=== PATIENT | male | born 1995 | race Caucasian/White ===

== ENCOUNTER 2024-11-12 21:55 | Emergency (ER) | payer SELFPAY ==
[~2024-11-12] VITALS: Ht 193 cm; Wt 73.0 kg
[2024-11-12 23:51] LABS: *BILIRUBIN,URIN NEGATIVE (NEGATIVE); *BLOOD, URINE NEGATIVE (NEGATIVE); *CLARITY,URINE CLEAR (CLEAR); *COLOR,URINE YELLOW (YELLOW); *KETONES,URINE NEGATIVE (NEGATIVE); *PROTEIN,URINE NEGATIVE (NEGATIVE); *UROBILINOGEN,URINE 0.2 E.U./dl (NORMAL); LEUKOCYTE ESTERASE ,URINE NEGATIVE (NEGATIVE); NITRITE, URINE NEGATIVE (NEGATIVE); UGLUCOSE NEGATIVE (NEGATIVE)
[2024-11-12 23:56] LABS: BASOPHILS % (AUTO) 0.5 % (0.0-2.0); EOSINOPHILS # (AUTO) 0.1 K/uL (0.0-0.7); HEMATOCRIT 41.8 % (36.7-47.1); HEMOGLOBIN 13.9 g/dL (12.5-16.3); LYMPHOCYTES # (AUTO) 1.6 K/uL (0.8-4.8); LYMPHOCYTES % (AUTO) 28.5 % (20.5-51.5); MEAN CORPUSCULAR HEMOGLOBIN 27.2 uug (23.8-33.4); MEAN CORPUSCULAR HGB CONC 33 g/dL (32.5-36.3); MEAN CORPUSCULAR VOLUME 81.9 fL (73.0-96.2); MONOCYTES # (AUTO) 0.4 K/uL (0.1-1.30); NEUTROPHILS # (AUTO) 3.4 K/uL (1.8-8.9); PLATELET COUNT (AUTO) 254 K/uL (152-348); RED BLOOD CELL COUNT(AUTO) 5.11 MIL/uL (4.06-5.63); RED CELL DISTRIBUTION WIDTH 13.2 % (12.1-16.2); WHITE BLOOD COUNT (AUTO) 5.6 K/uL (3.6-10.2)
[2024-11-12 23:59] LABS: *AMPHETAMINE, URINE NEGATIVE (NEGATIVE); *BARBITURATE, URINE NEGATIVE (NEGATIVE); *BENZODIAZEPINE, URINE NEGATIVE (NEGATIVE); *CANNABINOID, URINE NEGATIVE (NEGATIVE); *COCCAINE, URINE NEGATIVE (NEGATIVE); *OPIATE, URINE NEGATIVE (NEGATIVE); *PHENCYCLIDINE SCREEN,URINE NEGATIVE (NEGATIVE); FENTANYL, URINE NEGATIVE (NEGATIVE)
[2024-11-13 00:11] LABS: DIFFERENTIAL COMMENT 1
[2024-11-13] MEDS ORDERED: LISI-656 PO (00:23)
[2024-11-13] MEDS ORDERED: OMEP20TA20 PO (00:23)
[2024-11-13] MEDS ORDERED: LEVO25TA2 PO (00:23)
[2024-11-13] MEDS ORDERED: RISP1TAB7 PO (00:23)
[2024-11-13] MEDS ORDERED: TEMA15CA5 PO (00:23)
[2024-11-13] MEDS ORDERED: RISP2TAB5 PO (00:23)
[2024-11-13] MEDS ORDERED: MULT-213 PO (00:23)
[2024-11-13] MEDS ORDERED: POTA10CA43 PO (00:23)
[2024-11-13] MEDS ORDERED: DIVA500T2 PO (00:23)
[2024-11-13] MEDS ORDERED: CHOL10005 PO (00:23)
[2024-11-13] MEDS ORDERED: FURO20TA4 PO (00:23)
[2024-11-13] MEDS ORDERED: ATOR20TA PO (00:23)
[2024-11-13] MEDS ORDERED: ACET-2154 PO (00:23)
[2024-11-13] MEDS ORDERED: FOLI1TAB94 PO (00:23)
[2024-11-13] MEDS ORDERED: ASCO500C18 PO (00:23)
[2024-11-13 00:31] LABS: CALCIUM 9.2 mg/dL (8.5-10.1); POTASSIUM 3.8 mmol/L (3.5-5.1)
[2024-11-13 00:37] LABS: ALBUMIN 3.8 g/dL (3.4-5.0); BILIRUBIN,DIRECT 0.1 mg/dL (0.0-0.2); BILIRUBIN,TOTAL 0.4 mg/dL (0.2-1.0); TOTAL PROTEIN, SERUM 7.5 g/dL (6.4-8.2)
[2024-11-13 03:03] VITALS: BP 119/63; TEMP 97.8; O2SAT 98
== END 2024-11-13 03:05 | disposition home or self-care (01) ==
LOC: ER 21:58
DX: R44.0 Auditory hallucinations (principal); Z79.890 Hormone replacement therapy; Z79.899 Other long term (current) drug therapy
CPT/HCPCS: 36415; 85025; A4606; A4663; G0480